=== PATIENT | male | born 1970 | race Caucasian/White ===

== ENCOUNTER 2016-12-03 12:17 | Inpatient (IN) | payer MEDICAID, OTHER ==
[~2016-12-03] VITALS: Ht 165.1 cm; Wt 67.6 kg
[~2016-12-03 12:17] MED LIST: CHLO100T24 PO; HALOD100I IM; LITH450CRT PO; OMEP10 PO; TRIL8 PO
[2016-12-03 13:00] LABS: EOSINOPHILS % (AUTO) 1.2 % (1.0-6.0); HEMATOCRIT 39.9 % (41-53); HEMOGLOBIN 13.3 g/dL (13.5-17.5); LYMPHOCYTES # (AUTO) 0.7 K/uL (1.0-4.8); LYMPHOCYTES % (AUTO) 6.8 % (22.0-44.0); MEAN CORPUSCULAR HEMOGLOBIN 29.5 pg (26.0-34.0); MEAN CORPUSCULAR HGB CONC 33.2 G/dL (31.0-37.0); MEAN CORPUSCULAR VOLUME 89 fL (80-100); MONOCYTES # (AUTO) 0.5 K/uL (0.1-1.0); MONOCYTES % (AUTO) 4.6 % (2.0-9.0); NEUTROPHILS # (AUTO) 9.4 K/uL (1.8-7.7); NEUTROPHILS % (AUTO) 87.4 % (40.0-70.0); PLATELET COUNT (AUTO) 209 K/uL (150-450); RBC MORPHOLOGY COMMENT NORMAL RBC MORPH; RED CELL DISTRIBUTION WIDTH 14.1 % (11.5-14.5); WHITE BLOOD COUNT (AUTO) 10.7 K/uL (4.5-11.0)
[2016-12-03 13:10] LABS: ANION GAP 13 mmol/L (8-16); CALCIUM, TOTAL 8.7 mg/dL (8.8-10.5); CARBON DIOXIDE 23 mmol/L (22-29); CHLORIDE 100 mmol/L (98-107); CREATININE 1.24 mg/dL (0.60-1.30); GLOMERULAR FILTR. RATE CALC > 60 mL/min (>60); POTASSIUM 4.4 mmol/L (3.5-5.1); SODIUM SERUM 136 mmol/L (136-145); UREA NITROGEN, BLOOD 17 mg/dL (7-18)
[2016-12-03 13:15] LABS: ALANINE AMINOTRANSFERASE 30 U/L (12-78); ALBUMIN 3.4 g/dL (3.4-5.0); ASPARTATE AMINOTRANSFERASE 31 U/L (15-37); BILIRUBIN,TOTAL 0.4 mg/dL (0.1-1.0); TOTAL PROTEIN, SERUM 7.3 g/dL (6.4-8.2)
[2016-12-03] MEDS ORDERED: HALOPERIDOL 5 MG TABLET PO ONE (18:00)
[2016-12-03 18:07] LABS: LITHIUM < 0.20 mmol/L (0.60-1.20)
[2016-12-03 18:52] VITALS: BP 138/82
[2016-12-03] MEDS ORDERED: INFLUENZA VIRUS VACCINE QVS 2016-17 (3YR+)/PF 60 MCG/0.5 ML SYRINGE IM ONE (20:15)
[2016-12-03] MEDS: DIVALPROEX SODIUM 500 MG DR TABLET PO SCH (20:43)
[2016-12-03] MEDS: HALOPERIDOL 10 MG TABLET PO SCH (20:43)
[2016-12-03] MEDS ORDERED: HALOPERIDOL 10 MG TABLET PO SCH (21:00)
[2016-12-03] MEDS ORDERED: DIVALPROEX SODIUM 500 MG DR TABLET PO SCH (21:00)
[2016-12-03] MEDS: OMEPRAZOLE 20 MG CAPSULE PO SCH (21:29)
[2016-12-04 08:30] VITALS: BP 121/76
[2016-12-04] MEDS: DIVALPROEX SODIUM 500 MG DR TABLET PO SCH ×3 (08:53→16:23)
[2016-12-04] MEDS: SERTRALINE HCL 100 MG TABLET PO SCH (08:53)
[2016-12-04] MEDS ORDERED: HALOPERIDOL DECANOATE 100 MG/ML VIAL IM SCH (13:15)
[2016-12-04 19:40] VITALS: BP 119/78
[2016-12-04] MEDS: HALOPERIDOL 10 MG TABLET PO SCH (20:17)
[2016-12-04] MEDS: OMEPRAZOLE 20 MG CAPSULE PO SCH (20:17)
[2016-12-05 08:01] VITALS: BP 103/57
[2016-12-05] MEDS: DIVALPROEX SODIUM 500 MG DR TABLET PO SCH ×3 (10:21→16:18)
[2016-12-05] MEDS: SERTRALINE HCL 100 MG TABLET PO SCH (10:21)
[2016-12-05] MEDS: HALOPERIDOL 10 MG TABLET PO SCH (20:13)
[2016-12-05] MEDS: OMEPRAZOLE 20 MG CAPSULE PO SCH (21:13)
[2016-12-05 21:44] VITALS: BP 118/62
[2016-12-06] MEDS ORDERED: INFLUENZA VIRUS VACCINE QVS 2016-17 (3YR+)/PF 60 MCG/0.5 ML SYRINGE IM ONE (02:45)
[2016-12-06 08:30] VITALS: BP 110/65
[2016-12-06] MEDS: DIVALPROEX SODIUM 500 MG DR TABLET PO SCH ×3 (10:03→16:32)
[2016-12-06] MEDS: SERTRALINE HCL 100 MG TABLET PO SCH (10:04)
[2016-12-06 18:06] VITALS: BP 114/77
[2016-12-06] MEDS: ZOLPIDEM TARTRATE 10 MG TABLET PO PRN (20:27)
[2016-12-06] MEDS: HALOPERIDOL 10 MG TABLET PO SCH (20:27)
[2016-12-06] MEDS: OMEPRAZOLE 20 MG CAPSULE PO SCH (20:27)
[2016-12-07 08:00] VITALS: BP 123/69
[2016-12-07] MEDS: SERTRALINE HCL 100 MG TABLET PO SCH (09:21)
[2016-12-07] MEDS: DIVALPROEX SODIUM 500 MG DR TABLET PO SCH ×3 (09:21→16:56)
[2016-12-07] MEDS: HALOPERIDOL 5 MG TABLET PO PRN (12:25)
[2016-12-07] MEDS: LORazepam 2 MG TABLET PO PRN (12:25)
[2016-12-07] MEDS: ACETAMINOPHEN 325 MG TABLET PO PRN (13:25)
[2016-12-07] MEDS: IBUPROFEN 600 MG TABLET PO PRN (13:25)
[2016-12-07 16:45] VITALS: BP 123/78
[2016-12-07] MEDS: HALOPERIDOL 10 MG TABLET PO SCH (21:32)
[2016-12-07] MEDS: OMEPRAZOLE 20 MG CAPSULE PO SCH (21:32)
[2016-12-08 06:24] VITALS: BP 127/78
[2016-12-08 08:00] VITALS: BP 129/85
[2016-12-08] MEDS: ACETAMINOPHEN 325 MG TABLET PO PRN (08:05)
[2016-12-08] MEDS: DIVALPROEX SODIUM 500 MG DR TABLET PO SCH ×3 (08:05→16:30)
[2016-12-08] MEDS: SERTRALINE HCL 100 MG TABLET PO SCH (08:05)
[2016-12-08] MEDS: HALOPERIDOL 5 MG TABLET PO PRN ×2 (08:06→13:04)
[2016-12-08] MEDS: LORazepam 2 MG TABLET PO PRN ×3 (08:06→17:05)
[2016-12-08 08:07] VITALS: BP 129/85
[2016-12-08 10:50] VITALS: BP 120/82
[2016-12-08] MEDS: IBUPROFEN 600 MG TABLET PO PRN (10:55)
[2016-12-08 19:37] VITALS: BP 127/74
[2016-12-08] MEDS: HALOPERIDOL 10 MG TABLET PO SCH (20:11)
[2016-12-08] MEDS: OMEPRAZOLE 20 MG CAPSULE PO SCH (20:12)
[2016-12-09 08:08] VITALS: BP 139/85
[2016-12-09] MEDS: DIVALPROEX SODIUM 500 MG DR TABLET PO SCH ×3 (09:04→15:54)
[2016-12-09] MEDS: SERTRALINE HCL 100 MG TABLET PO SCH (09:04)
[2016-12-09] MEDS: HALOPERIDOL 10 MG TABLET PO SCH (20:02)
[2016-12-09] MEDS: OMEPRAZOLE 20 MG CAPSULE PO SCH (20:02)
[2016-12-09 21:49] VITALS: BP 111/68
[2016-12-10] MEDS: DIVALPROEX SODIUM 500 MG DR TABLET PO SCH ×3 (07:57→16:50)
[2016-12-10] MEDS: SERTRALINE HCL 100 MG TABLET PO SCH (07:57)
[2016-12-10 08:58] VITALS: BP 135/81
[2016-12-10 16:30] VITALS: BP 124/74
[2016-12-10] MEDS: HALOPERIDOL 10 MG TABLET PO SCH (20:21)
[2016-12-10] MEDS: OMEPRAZOLE 20 MG CAPSULE PO SCH (20:21)
[2016-12-10] MEDS: ZOLPIDEM TARTRATE 10 MG TABLET PO PRN (21:21)
[2016-12-11] MEDS: SERTRALINE HCL 100 MG TABLET PO SCH (08:21)
[2016-12-11] MEDS: DIVALPROEX SODIUM 500 MG DR TABLET PO SCH ×3 (08:21→16:09)
[2016-12-11 08:30] VITALS: BP 144/78
[2016-12-11 16:45] VITALS: BP 154/88
[2016-12-11] MEDS: ZOLPIDEM TARTRATE 10 MG TABLET PO PRN (21:04)
[2016-12-11] MEDS: HALOPERIDOL 10 MG TABLET PO SCH (21:04)
[2016-12-11] MEDS: OMEPRAZOLE 20 MG CAPSULE PO SCH (21:05)
[2016-12-12 06:51] VITALS: BP 140/88
[2016-12-12 08:00] VITALS: BP 136/84
[2016-12-12] MEDS: SERTRALINE HCL 100 MG TABLET PO SCH (08:36)
[2016-12-12] MEDS: DIVALPROEX SODIUM 500 MG DR TABLET PO SCH ×3 (08:36→16:12)
[2016-12-12 18:13] VITALS: BP 124/78
[2016-12-12] MEDS: OMEPRAZOLE 20 MG CAPSULE PO SCH (20:10)
[2016-12-12] MEDS: HALOPERIDOL 10 MG TABLET PO SCH (20:10)
[2016-12-13] MEDS: SERTRALINE HCL 100 MG TABLET PO SCH (08:09)
[2016-12-13] MEDS: DIVALPROEX SODIUM 500 MG DR TABLET PO SCH ×3 (08:10→15:54)
[2016-12-13 10:25] VITALS: BP 122/81
[2016-12-13 19:51] VITALS: BP 143/81
[2016-12-13] MEDS: OMEPRAZOLE 20 MG CAPSULE PO SCH (20:05)
[2016-12-13] MEDS: HALOPERIDOL 10 MG TABLET PO SCH (20:06)
[2016-12-13] MEDS: ZOLPIDEM TARTRATE 10 MG TABLET PO PRN (20:50)
[2016-12-14 08:12] VITALS: BP 116/61
[2016-12-14] MEDS: SERTRALINE HCL 100 MG TABLET PO SCH (08:42)
[2016-12-14] MEDS: DIVALPROEX SODIUM 500 MG DR TABLET PO SCH ×3 (08:42→16:37)
[2016-12-14 16:53] VITALS: BP 133/75
[2016-12-14] MEDS: ZOLPIDEM TARTRATE 10 MG TABLET PO PRN (20:17)
[2016-12-14] MEDS: HALOPERIDOL 10 MG TABLET PO SCH (20:17)
[2016-12-14] MEDS: OMEPRAZOLE 20 MG CAPSULE PO SCH (20:17)
[2016-12-15 05:32] VITALS: BP 123/79
[2016-12-15 08:43] VITALS: BP 139/79
[2016-12-15] MEDS: SERTRALINE HCL 100 MG TABLET PO SCH (08:44)
[2016-12-15] MEDS: DIVALPROEX SODIUM 500 MG DR TABLET PO SCH ×3 (08:44→16:14)
[2016-12-15] MEDS: IBUPROFEN 600 MG TABLET PO PRN (10:50)
[2016-12-15 16:38] VITALS: BP 125/71
[2016-12-15] MEDS: OMEPRAZOLE 20 MG CAPSULE PO SCH (20:04)
[2016-12-15] MEDS: HALOPERIDOL 10 MG TABLET PO SCH (20:04)
[2016-12-15] MEDS: ZOLPIDEM TARTRATE 10 MG TABLET PO PRN (20:30)
[2016-12-16 08:00] VITALS: BP 118/77
[2016-12-16] MEDS: SERTRALINE HCL 100 MG TABLET PO SCH (09:08)
[2016-12-16] MEDS: DIVALPROEX SODIUM 500 MG DR TABLET PO SCH ×3 (09:08→16:13)
[2016-12-16 16:00] VITALS: BP 119/70
[2016-12-16] MEDS: OMEPRAZOLE 20 MG CAPSULE PO SCH (20:28)
[2016-12-16] MEDS: HALOPERIDOL 10 MG TABLET PO SCH (20:28)
[2016-12-16] MEDS: ZOLPIDEM TARTRATE 10 MG TABLET PO PRN (21:02)
[2016-12-16] MEDS: LORazepam 2 MG TABLET PO PRN (22:00)
[2016-12-17 08:30] VITALS: BP 133/77
[2016-12-17] MEDS: SERTRALINE HCL 100 MG TABLET PO SCH (10:56)
[2016-12-17] MEDS: DIVALPROEX SODIUM 500 MG DR TABLET PO SCH ×3 (10:56→16:54)
[2016-12-17 16:23] VITALS: BP 134/76
[2016-12-17] MEDS: OMEPRAZOLE 20 MG CAPSULE PO SCH (20:09)
[2016-12-17] MEDS: HALOPERIDOL 10 MG TABLET PO SCH (20:10)
[2016-12-17] MEDS: ZOLPIDEM TARTRATE 10 MG TABLET PO PRN (20:20)
[2016-12-18 06:08] VITALS: BP 129/72
[2016-12-18] MEDS: DIVALPROEX SODIUM 500 MG DR TABLET PO SCH ×3 (08:49→16:16)
[2016-12-18] MEDS: SERTRALINE HCL 100 MG TABLET PO SCH (08:49)
[2016-12-18 10:01] VITALS: BP 120/77
[2016-12-18 16:36] VITALS: BP 124/72
[2016-12-18] MEDS: OMEPRAZOLE 20 MG CAPSULE PO SCH (20:15)
[2016-12-18] MEDS ORDERED: ACETAMINOPHEN 325 MG TABLET PO PRN (22:30)
[2016-12-19] MEDS: SERTRALINE HCL 100 MG TABLET PO SCH (09:03)
[2016-12-19] MEDS: DIVALPROEX SODIUM 500 MG DR TABLET PO SCH ×3 (09:03→15:57)
[2016-12-19 10:35] VITALS: BP 136/87
[2016-12-19 16:47] VITALS: BP 123/73
[2016-12-19] MEDS: OMEPRAZOLE 20 MG CAPSULE PO SCH (20:05)
[2016-12-19] MEDS: ZOLPIDEM TARTRATE 10 MG TABLET PO PRN (20:36)
[2016-12-19] MEDS: LORazepam 2 MG TABLET PO PRN (22:50)
[2016-12-20] MEDS: SERTRALINE HCL 100 MG TABLET PO SCH (09:27)
[2016-12-20] MEDS: DIVALPROEX SODIUM 500 MG DR TABLET PO SCH ×2 (09:27→13:14)
[2016-12-20 09:41] VITALS: BP 129/80
[2016-12-20] MEDS ORDERED: DIVA500T35 PO (11:59)
[2016-12-20] MEDS ORDERED: SERT100T12 PO (11:59)
== END 2016-12-20 15:36 | disposition home or self-care (01) | DRG 750 ==
LOC: EEVIPCON 12:17 → EMS 12:20 → 3EI 18:48 → EMS 18:54
DX: F25.0 Schizoaffective disorder, bipolar type (principal); R45.851 Suicidal ideations; Z91.14 Patient's other noncompliance with medication regimen; H91.3 Deaf nonspeaking, not elsewhere classified; K21.9 Gastro-esophageal reflux disease without esophagitis; F17.210 Nicotine dependence, cigarettes, uncomplicated; Z28.21 Immunization not carried out because of patient refusal; Z79.899 Other long term (current) drug therapy; Z91.5 Personal history of self-harm
CPT/HCPCS: 96372; 99285; G0480; J1631

== ENCOUNTER 2019-04-26 15:11 | Inpatient (IN) | payer MEDICAID, OTHER ==
[~2019-04-26] VITALS: Ht 167.6 cm; Wt 67.6 kg
[~2019-04-26 15:11] MED LIST changes: -CHLO100T24 PO; +DIVA-78 PO; -HALOD100I IM; -LITH450CRT PO; -OMEP10 PO; +RISP1 PO; -TRIL8 PO
[2019-04-26] MEDS ORDERED: VALP250 PO (16:03)
[2019-04-26] MEDS ORDERED: CHLO100T24 PO (16:03)
[2019-04-26] MEDS ORDERED: HALO10 PO (16:03)
[2019-04-26 16:29] LABS: HEMATOCRIT 41.9 % (41-53); HEMOGLOBIN 14.2 g/dL (13.5-17.5); MEAN CORPUSCULAR HEMOGLOBIN 28.6 pg (26.0-34.0); MEAN CORPUSCULAR HGB CONC 33.8 G/dL (31.0-37.0); MEAN CORPUSCULAR VOLUME 85 fL (80-100); PLATELET COUNT (AUTO) 183 K/uL (150-450); RED BLOOD CELL COUNT(AUTO) 4.96 MIL/uL (4.50-5.90); RED CELL DISTRIBUTION WIDTH 15.5 % (11.5-14.5)
[2019-04-26 16:34] LABS: ANION GAP 7 mmol/L (8-16); CALCIUM, TOTAL 8.8 mg/dL (8.8-10.5); CARBON DIOXIDE 28 mmol/L (22-29); CHLORIDE 103 mmol/L (98-107); CREATININE 0.92 mg/dL (0.60-1.30); GLOMERULAR FILTR. RATE CALC > 60 mL/min (>60); GLUCOSE,RANDOM 95 mg/dL (70-110); POTASSIUM 4.4 mmol/L (3.5-5.1); SODIUM SERUM 138 mmol/L (136-145); UREA NITROGEN, BLOOD 13 mg/dL (7-18)
[2019-04-26 16:40] LABS: ALANINE AMINOTRANSFERASE 23 U/L (12-78); ALBUMIN 3.7 g/dL (3.4-5.0); ALKALINE PHOSPHATASE 77 U/L (46-116); ASPARTATE AMINOTRANSFERASE 22 U/L (15-37); BILIRUBIN,TOTAL 0.3 mg/dL (0.1-1.0); VALPROIC ACID 63 mcg/mL (50-100)
[2019-04-26 17:35] LABS: BAND NEUTROPHILS % (MANUAL) 3 % (0-5); LYMPHOCYTES % (MANUAL) 24 % (22-44); MONOCYTES % (MANUAL) 1 % (2-9); SEGMENTED NEUTROPHILS % 72 % (40-70)
[2019-04-26] MEDS ORDERED: TUBERCULIN, PURIFIED PROTEIN DERIVATIVE 5 TU/0.1 ML SYRINGE ID ONE (18:15)
[2019-04-26] MEDS ORDERED: PROMETHAZINE HCL 25 MG TABLET PO PRN (18:15)
[2019-04-26] MEDS ORDERED: MAGNESIUM HYDROXIDE SUSPENSION 30 ML UDCUP PO PRN (18:15)
[2019-04-26] MEDS ORDERED: HydrOXYzine PAMOATE 50 MG CAPSULE PO PRN (18:15)
[2019-04-26] MEDS ORDERED: GuaiFENesin/D-METHORPHAN [SUGAR-FREE] 200-20MG/10 ML SYRUP UDCUP PO PRN (18:15)
[2019-04-26] MEDS ORDERED: OLANZapine 5 MG RAPDIS TABLET PO PRN (18:15)
[2019-04-26] MEDS ORDERED: LOPERAMIDE HCL 2 MG CAPSULE PO PRN ×2 (18:15→23:00)
[2019-04-26] MEDS ORDERED: MAG HYDROX/AL HYDROX/SIMETH ES 30 ML SUSPENSION UDCUP PO PRN (18:15)
[2019-04-26] MEDS ORDERED: ACETAMINOPHEN 325 MG TABLET PO PRN (18:15)
[2019-04-26 18:24] LABS: AMPHET/METH SCREEN,URINE NEGATIVE (NEGATIVE); BARBITURATE SCREEN, URINE NEGATIVE (NEGATIVE); BENZODIAZEPINES SCREEN,URINE NEGATIVE (NEGATIVE); CANNABINOID SCREEN,URINE NEGATIVE (NEGATIVE); COCAINE SCREEN,URINE NEGATIVE (NEGATIVE); METHADONE SCREEN, URINE NEGATIVE (NEGATIVE); OPIATE SCREEN,URINE NEGATIVE (NEGATIVE); PHENCYCLIDINE SCREEN,URINE NEGATIVE (NEGATIVE)
[2019-04-26] MEDS ORDERED: LORazepam 2 MG TABLET ONE (19:55)
[2019-04-26] MEDS: LORazepam 2 MG TABLET PO PRN (19:58)
[2019-04-26] MEDS: ZOLPIDEM TARTRATE 10 MG TABLET PO PRN (20:00)
[2019-04-26] MEDS ORDERED: OLANZapine 5 MG RAPDIS TABLET PO SCH (21:00)
[2019-04-26] MEDS: THIAMINE HCL 100 MG TABLET PO SCH (22:01)
[2019-04-26] MEDS: DIVALPROEX SODIUM 500 MG ER TABLET PO SCH (22:01)
[2019-04-26 22:02] VITALS: BP 120/78
[2019-04-26] MEDS ORDERED: ALBUTEROL SULFATE HFA 90 MCG/PUFF 8 GM INHALER IH PRN (23:00)
[2019-04-26] MEDS ORDERED: CloNIDine HCL 0.1 MG TABLET PO PRN (23:00)
[2019-04-26] MEDS ORDERED: PETROLATUM,WHITE 28 GM JELLY TP PRN (23:00)
[2019-04-26] MEDS ORDERED: BENZOCAINE/MENTHOL LOZENGE MM PRN (23:00)
[2019-04-26] MEDS ORDERED: ONDANSETRON HCL 4 MG TABLET PO PRN (23:00)
[2019-04-26] MEDS ORDERED: BACITRACIN 28.4 GM OINTMENT TP PRN (23:00)
[2019-04-26] MEDS ORDERED: IBUPROFEN 600 MG TABLET PO PRN (23:00)
[2019-04-27 02:47] VITALS: BP 116/58
[2019-04-27 06:30] LABS: HEMOGLOBIN A1C 5.4 % (4.5-6.2)
[2019-04-27 06:53] LABS: CHOL/HDL RATIO 2.1 (4.2-7.3); FREE T4 (FREE THYROXINE) 0.96 ng/dL (0.76-1.46); THYROID STIMULATING HORMONE 4.59 uIU/mL (0.36-3.74)
[2019-04-27] MEDS: FOLIC ACID 1 MG TABLET PO SCH (10:02)
[2019-04-27] MEDS: LORazepam 2 MG TABLET PO PRN ×2 (10:02→15:25)
[2019-04-27] MEDS: THIAMINE HCL 100 MG TABLET PO SCH ×2 (10:02→16:05)
[2019-04-27] MEDS: OMEPRAZOLE 20 MG CAPSULE PO SCH (10:02)
[2019-04-27] MEDS: MULTIVITAMINS WITH MINERALS, THERAPEUTIC TABLET PO SCH (10:02)
[2019-04-27 11:20] VITALS: BP 124/72
[2019-04-27 16:19] VITALS: BP 96/68
[2019-04-27] MEDS: OLANZapine 10 MG RAPDIS TABLET PO SCH (20:13)
[2019-04-27] MEDS: DIVALPROEX SODIUM 500 MG ER TABLET PO SCH (20:13)
[2019-04-27] MEDS: ZOLPIDEM TARTRATE 10 MG TABLET PO PRN (20:14)
[2019-04-28] MEDS: LEVOTHYROXINE SODIUM 25 MCG TABLET PO SCH (07:01)
[2019-04-28] MEDS: OMEPRAZOLE 20 MG CAPSULE PO SCH (08:13)
[2019-04-28] MEDS: MULTIVITAMINS WITH MINERALS, THERAPEUTIC TABLET PO SCH (08:13)
[2019-04-28] MEDS: THIAMINE HCL 100 MG TABLET PO SCH ×2 (08:14→16:14)
[2019-04-28] MEDS: FOLIC ACID 1 MG TABLET PO SCH (08:14)
[2019-04-28 10:25] VITALS: BP 114/82
[2019-04-28 16:50] VITALS: BP 129/79
[2019-04-28] MEDS: DIVALPROEX SODIUM 500 MG ER TABLET PO SCH (20:44)
[2019-04-28] MEDS: OLANZapine 10 MG RAPDIS TABLET PO SCH (20:45)
[2019-04-29] MEDS: LEVOTHYROXINE SODIUM 25 MCG TABLET PO SCH (07:25)
[2019-04-29 09:00] VITALS: BP 118/82
[2019-04-29] MEDS: LORazepam 2 MG TABLET PO PRN (09:57)
[2019-04-29] MEDS: OMEPRAZOLE 20 MG CAPSULE PO SCH (09:57)
[2019-04-29] MEDS: FOLIC ACID 1 MG TABLET PO SCH (09:57)
[2019-04-29] MEDS: THIAMINE HCL 100 MG TABLET PO SCH ×2 (09:57→16:05)
[2019-04-29] MEDS: MULTIVITAMINS WITH MINERALS, THERAPEUTIC TABLET PO SCH (09:57)
[2019-04-29] MEDS ORDERED: OLAN10TA22 PO (15:07)
[2019-04-29] MEDS ORDERED: DIVA500T52 PO (15:07)
[2019-04-29 16:15] VITALS: BP 118/82
[2019-04-29] MEDS ORDERED: LEVO25TA9 PO (18:01)
[2019-04-29] MEDS ORDERED: OMEP20 PO (18:02)
== END 2019-04-29 19:10 | disposition home or self-care (01) | DRG 750 ==
LOC: EMS 15:14 → 3EX 21:09
PROVIDERS: ADMIT Psychiatry & Neurology Psychiatry; ATTEND Psychiatry & Neurology Psychiatry
DX: F20.0 Paranoid schizophrenia (principal); Z91.19 Patient's noncompliance with other medical treatment and regimen; E03.9 Hypothyroidism, unspecified; F17.200 Nicotine dependence, unspecified, uncomplicated; G47.00 Insomnia, unspecified; H91.3 Deaf nonspeaking, not elsewhere classified; K59.00 Constipation, unspecified
CPT/HCPCS: 83036; 84439; 84443; 86592; 93005; G0378; G0480

== ENCOUNTER 2019-05-12 19:40 | Emergency (ER) | payer MEDICAID, OTHER ==
[~2019-05-12] VITALS: Ht 166.4 cm; Wt 61.5 kg
[~2019-05-12 19:40] MED LIST changes: -DIVA-78 PO; +DIVA500T52 PO; +LEVO25TA9 PO; +OLAN10TA22 PO; -RISP1 PO
[2019-05-12] MEDS ORDERED: HALO5TAB2 PO (20:00)
[2019-05-12] MEDS ORDERED: FAMOTIDINE 10 MG/ML 2 ML VIAL IVP ONE (21:30)
[2019-05-12] MEDS ORDERED: MethylPREDNISolone SOD SUCC 125 MG/2 ML VIAL IVP ONE (21:30)
[2019-05-13 01:25] VITALS: BP 121/71
== END 2019-05-13 02:19 | disposition home or self-care (01) ==
LOC: EMS 19:42
DX: T43.4X5A Adverse effect of butyrophenone and thiothixene neuroleptics, initial encounter (principal); F20.9 Schizophrenia, unspecified; Z88.8 Allergy status to other drugs, medicaments and biological substances; Z79.899 Other long term (current) drug therapy; Y92.89 Other specified places as the place of occurrence of the external cause
CPT/HCPCS: 96374; 96375; 99283; J2930; J3490

== ENCOUNTER 2019-06-14 12:33 | Emergency (ER) | payer OTHER ==
[~2019-06-14] VITALS: Ht 165.1 cm; Wt 61.5 kg
[~2019-06-14 12:33] MED LIST changes: +HALO5TAB2 PO
[2019-06-14] MEDS ORDERED: VALP250S4 PO (13:09)
[2019-06-14] MEDS ORDERED: VALP250 PO (13:09)
[2019-06-14 15:31] LABS: BASOPHILS % (AUTO) 0.6 % (0.0-2.0); EOSINOPHILS % (AUTO) 1.3 % (1.0-6.0); HEMATOCRIT 41.7 % (41-53); LYMPHOCYTES # (AUTO) 1.2 K/uL (1.0-4.8); LYMPHOCYTES % (AUTO) 18.1 % (22.0-44.0); MEAN CORPUSCULAR HEMOGLOBIN 29.2 pg (26.0-34.0); MEAN CORPUSCULAR HGB CONC 33.6 G/dL (31.0-37.0); MEAN CORPUSCULAR VOLUME 87 fL (80-100); MONOCYTES # (AUTO) 0.4 K/uL (0.1-1.0); MONOCYTES % (AUTO) 5.5 % (2.0-9.0); NEUTROPHILS # (AUTO) 4.8 K/uL (1.8-7.7); NEUTROPHILS % (AUTO) 74.5 % (40.0-70.0); PLATELET COUNT (AUTO) 181 K/uL (150-450); RED BLOOD CELL COUNT(AUTO) 4.81 MIL/uL (4.50-5.90); RED CELL DISTRIBUTION WIDTH 15.8 % (11.5-14.5)
[2019-06-14 15:40] LABS: SALICYLATE < 2.8 mg/dL (2.8-20.0)
[2019-06-14 15:41] LABS: ANION GAP 11 mmol/L (8-16); CALCIUM, TOTAL 8.9 mg/dL (8.8-10.5); CARBON DIOXIDE 25 mmol/L (22-29); CHLORIDE 101 mmol/L (98-107); CREATININE 0.85 mg/dL (0.60-1.30); GLOMERULAR FILTR. RATE CALC > 60 mL/min (>60); GLUCOSE,RANDOM 94 mg/dL (70-110); SODIUM SERUM 137 mmol/L (136-145); UREA NITROGEN, BLOOD 8 mg/dL (7-18)
[2019-06-14 15:44] LABS: INR 0.9 (0.9-1.1); PROTHROMBIN TIME 9.9 SEC (9.4-11.6)
[2019-06-14 15:48] LABS: TROPONIN I 0.04 ng/mL (0.00-0.05)
[2019-06-14 16:02] LABS: LACTIC ACID 1.8 mmol/L (0.4-2.0)
[2019-06-14 16:07] LABS: ALANINE AMINOTRANSFERASE 49 U/L (12-78); ALBUMIN 3.9 g/dL (3.4-5.0); ALKALINE PHOSPHATASE 72 U/L (46-116); ASPARTATE AMINOTRANSFERASE 38 U/L (15-37); BILIRUBIN,TOTAL 0.5 mg/dL (0.1-1.0); CREATINE KINASE, TOTAL ONLY 401 U/L (39-308); TOTAL PROTEIN, SERUM 7.2 g/dL (6.4-8.2)
[2019-06-14 16:30] LABS: AMPHET/METH SCREEN,URINE NEGATIVE (NEGATIVE); BARBITURATE SCREEN, URINE NEGATIVE (NEGATIVE); BENZODIAZEPINES SCREEN,URINE NEGATIVE (NEGATIVE); CANNABINOID SCREEN,URINE NEGATIVE (NEGATIVE); COCAINE SCREEN,URINE NEGATIVE (NEGATIVE); METHADONE SCREEN, URINE NEGATIVE (NEGATIVE); OPIATE SCREEN,URINE NEGATIVE (NEGATIVE)
[2019-06-14 16:41] LABS: ACETAMINOPHEN < 2 mcg/mL (10-30)
[2019-06-14 16:46] LABS: APPEARANCE,URINE CLEAR (CLEAR); BILIRUBIN,URINE NEGATIVE (NEGATIVE); GLUCOSE, URINE (UA) NEGATIVE (NEGATIVE); KETONES,URINE NEGATIVE (NEGATIVE); LEUKOCYTE ESTERASE ,URINE NEGATIVE (NEGATIVE); NITRATE,URINE NEGATIVE (NEGATIVE); OCCULT BLOOD,URINE NEGATIVE (NEGATIVE); PROTEIN,URINE NEGATIVE (NEGATIVE)
[2019-06-14 16:52] LABS: PHENCYCLIDINE SCREEN,URINE NEGATIVE (NEGATIVE)
[2019-06-14 19:19] VITALS: BP 120/76
== END 2019-06-14 19:31 | disposition home or self-care (01) ==
LOC: EMS 12:35
DX: F20.9 Schizophrenia, unspecified (principal); R41.82 Altered mental status, unspecified; H91.3 Deaf nonspeaking, not elsewhere classified; Z88.6 Allergy status to analgesic agent; Z79.899 Other long term (current) drug therapy
CPT/HCPCS: 36415; 70450; 71045; 80053; 80307; 81003; 82140; 82550; 83605; 84484; 85025; 85610; 85730; 87040; 93005; 99285; G0480; G0481

== ENCOUNTER 2019-07-23 15:50 | Emergency (ER) | payer OTHER ==
[~2019-07-23] VITALS: Ht 167.6 cm; Wt 61.4 kg
[~2019-07-23 15:50] MED LIST changes: +VALP250 PO
[2019-07-23 16:08] VITALS: BP 137/96
== END 2019-07-23 16:41 | disposition left against medical advice (07) ==
LOC: EMS 15:51
DX: Z00.8 Encounter for other general examination (principal); Z53.21 Procedure and treatment not carried out due to patient leaving prior to being seen by health care provider

== ENCOUNTER 2019-08-17 15:11 | Inpatient (IN) | payer OTHER ==
[~2019-08-17] VITALS: Ht 167.6 cm; Wt 65.1 kg
[2019-08-17 16:37] LABS: BASOPHILS % (AUTO) 0.7 % (0.0-2.0); EOSINOPHILS % (AUTO) 1.1 % (1.0-6.0); HEMATOCRIT 42.8 % (41-53); LYMPHOCYTES # (AUTO) 1.2 K/uL (1.0-4.8); LYMPHOCYTES % (AUTO) 21.8 % (22.0-44.0); MEAN CORPUSCULAR HEMOGLOBIN 30.1 pg (26.0-34.0); MEAN CORPUSCULAR VOLUME 86 fL (80-100); MONOCYTES # (AUTO) 0.3 K/uL (0.1-1.0); MONOCYTES % (AUTO) 6.1 % (2.0-9.0); NEUTROPHILS # (AUTO) 3.7 K/uL (1.8-7.7); NEUTROPHILS % (AUTO) 70.3 % (40.0-70.0); PLATELET COUNT (AUTO) 176 K/uL (150-450); RED BLOOD CELL COUNT(AUTO) 4.96 MIL/uL (4.50-5.90); RED CELL DISTRIBUTION WIDTH 13.8 % (11.5-14.5)
[2019-08-17 16:49] LABS: AMPHET/METH SCREEN,URINE NEGATIVE (NEGATIVE); BARBITURATE SCREEN, URINE NEGATIVE (NEGATIVE); BENZODIAZEPINES SCREEN,URINE NEGATIVE (NEGATIVE); CANNABINOID SCREEN,URINE NEGATIVE (NEGATIVE); COCAINE SCREEN,URINE NEGATIVE (NEGATIVE); METHADONE SCREEN, URINE NEGATIVE (NEGATIVE); OPIATE SCREEN,URINE NEGATIVE (NEGATIVE)
[2019-08-17 16:49] LABS: ANION GAP 6 mmol/L (8-16); CALCIUM, TOTAL 8.4 mg/dL (8.8-10.5); CARBON DIOXIDE 26 mmol/L (22-29); CHLORIDE 101 mmol/L (98-107); CREATININE 0.88 mg/dL (0.60-1.30); GLOMERULAR FILTR. RATE CALC > 60 mL/min (>60); GLUCOSE,RANDOM 104 mg/dL (70-110); POTASSIUM 3.9 mmol/L (3.5-5.1); SODIUM SERUM 133 mmol/L (136-145); UREA NITROGEN, BLOOD 7 mg/dL (7-18)
[2019-08-17 16:50] LABS: PHENCYCLIDINE SCREEN,URINE NEGATIVE (NEGATIVE)
[2019-08-17 17:03] LABS: ALANINE AMINOTRANSFERASE 31 U/L (12-78); ALKALINE PHOSPHATASE 66 U/L (46-116); ASPARTATE AMINOTRANSFERASE 27 U/L (15-37); BILIRUBIN,TOTAL 0.6 mg/dL (0.1-1.0); THYROID STIMULATING HORMONE 1.35 uIU/mL (0.36-3.74); TOTAL PROTEIN, SERUM 7.3 g/dL (6.4-8.2); VALPROIC ACID 73 mcg/mL (50-100)
[2019-08-17] MEDS ORDERED: 0.9% SODIUM CHLORIDE 10 ML SYRINGE IVP PRN (20:30)
[2019-08-17] MEDS ORDERED: ONDANSETRON HCL 4 MG/2 ML VIAL IVP PRN ×2 (20:30→21:30)
[2019-08-17] MEDS ORDERED: ACETAMINOPHEN 325 MG TABLET PO PRN ×2 (20:30→21:30)
[2019-08-17] MEDS ORDERED: MAGNESIUM HYDROXIDE SUSPENSION 30 ML UDCUP PO PRN (21:30)
[2019-08-17] MEDS ORDERED: HYDROCODONE/ACETAMINOPHEN 5-325 MG TABLET PO PRN (21:30)
[2019-08-17] MEDS ORDERED: BISACODYL 10 MG RECTAL RECTAL SUPPOSITORY PR PRN (21:30)
[2019-08-17] MEDS ORDERED: ZOLPIDEM TARTRATE 5 MG TABLET PO PRN (21:30)
[2019-08-17] MEDS ORDERED: MORPHINE SULFATE 2 MG/ML SYRINGE IVP PRN (21:30)
[2019-08-17] MEDS ORDERED: ALBUTEROL SULFATE 2.5 MG/0.5 ML NEB SOLUTION NEB PRN (21:30)
[2019-08-17] MEDS ORDERED: IPRATROPIUM BROMIDE 0.5 MG/2.5 ML NEB SOLUTION NEB PRN (21:30)
[2019-08-17 21:57] VITALS: BP 113/69
[2019-08-17] MEDS ORDERED: DIVALPROEX SODIUM 500 MG ER TABLET PO SCH (23:00)
[2019-08-17] MEDS ORDERED: OLANZapine 10 MG RAPDIS TABLET PO ONE (23:00)
[2019-08-17] MEDS: HEPARIN SODIUM,PORCINE 5,000 UNITS/ML VIAL SQ SCH (23:13)
[2019-08-18 04:45] VITALS: BP 112/71
[2019-08-18] MEDS ORDERED: LEVOTHYROXINE SODIUM 25 MCG TABLET PO SCH (06:30)
[2019-08-18 06:58] LABS: BASOPHILS % (AUTO) 0.8 % (0.0-2.0); EOSINOPHILS % (AUTO) 2.9 % (1.0-6.0); HEMATOCRIT 41.6 % (41-53); HEMOGLOBIN 14.8 g/dL (13.5-17.5); LYMPHOCYTES # (AUTO) 1.9 K/uL (1.0-4.8); LYMPHOCYTES % (AUTO) 42.1 % (22.0-44.0); MEAN CORPUSCULAR HEMOGLOBIN 30.3 pg (26.0-34.0); MEAN CORPUSCULAR HGB CONC 35.7 G/dL (31.0-37.0); MEAN CORPUSCULAR VOLUME 85 fL (80-100); MONOCYTES # (AUTO) 0.3 K/uL (0.1-1.0); MONOCYTES % (AUTO) 6.2 % (2.0-9.0); NEUTROPHILS # (AUTO) 2.2 K/uL (1.8-7.7); PLATELET COUNT (AUTO) 176 K/uL (150-450); RED CELL DISTRIBUTION WIDTH 13.9 % (11.5-14.5)
[2019-08-18 07:16] LABS: ALANINE AMINOTRANSFERASE 24 U/L (12-78); ALBUMIN 3.5 g/dL (3.4-5.0); ALKALINE PHOSPHATASE 58 U/L (46-116); ANION GAP 5 mmol/L (8-16); ASPARTATE AMINOTRANSFERASE 21 U/L (15-37); BILIRUBIN,TOTAL 0.5 mg/dL (0.1-1.0); CALCIUM, TOTAL 8.5 mg/dL (8.8-10.5); CARBON DIOXIDE 28 mmol/L (22-29); CHLORIDE 102 mmol/L (98-107); CREATININE 0.79 mg/dL (0.60-1.30); GLOMERULAR FILTR. RATE CALC > 60 mL/min (>60); GLUCOSE,RANDOM 83 mg/dL (70-110); POTASSIUM 4.1 mmol/L (3.5-5.1); SODIUM SERUM 135 mmol/L (136-145); TOTAL PROTEIN, SERUM 6.6 g/dL (6.4-8.2); UREA NITROGEN, BLOOD 11 mg/dL (7-18)
[2019-08-18 08:14] VITALS: BP 126/70
[2019-08-18] MEDS: HEPARIN SODIUM,PORCINE 5,000 UNITS/ML VIAL SQ SCH (08:42)
[2019-08-18] MEDS ORDERED: HALOPERIDOL 5 MG TABLET PO SCH (09:00)
[2019-08-18] MEDS ORDERED: DOCUSATE SODIUM 100 MG CAPSULE PO SCH (09:00)
[2019-08-18] MEDS ORDERED: ASPIRIN 81 MG EC TABLET PO SCH (09:00)
[2019-08-18 11:30] VITALS: BP 114/80
[2019-08-18] MEDS ORDERED: OLANZapine 10 MG RAPDIS TABLET PO SCH (21:00)
== END 2019-08-18 15:15 | disposition home or self-care (01) | DRG 204 ==
LOC: EMS 15:13 → 5N 20:00
PROVIDERS: ADMIT Hospitalist; ATTEND Hospitalist
DX: R55 Syncope and collapse (principal); F20.0 Paranoid schizophrenia; E03.9 Hypothyroidism, unspecified; G40.909 Epilepsy, unspecified, not intractable, without status epilepticus
CPT/HCPCS: 70450; 72125; 84443; 93005; 93306; 93880; G0480; J1644